=== PATIENT | male | born 1955 | race Caucasian/White ===

== ENCOUNTER → 2019-08-01 | Day surgery (SDC) | payer BC ==
[~2019-08-01] VITALS: Ht 175.2 cm; Wt 113.4 kg
[~2019-08-01] MED LIST: FISH OIL 1,2001 EACH PO; LANSOPRAZOLE30 MG PO; LOTREL 5-40 MG1 EACH PO; NORVASC10 MG PO; PRAVASTATIN SOD20 MG PO; PRAVASTATIN SOD40 MG PO
[2019-08-01 08:30] VITALS: BP 152/91
[2019-08-01 10:06] VITALS: BP 140/92
[2019-08-01 10:21] VITALS: BP 127/76
[2019-08-01 10:36] VITALS: BP 111/77
== END | disposition home or self-care (01) ==
LOC: SDC 07-26 10:15
DX: H25.11 Age-related nuclear cataract, right eye (principal); I10 Essential (primary) hypertension; Z98.890 Other specified postprocedural states

== ENCOUNTER → 2019-08-22 | Day surgery (SDC) | payer BC ==
[~2019-08-22] VITALS: Ht 175.2 cm; Wt 113.4 kg
[2019-08-22 10:40] VITALS: BP 134/82
[2019-08-22 12:09] VITALS: BP 143/93
[2019-08-22 12:25] VITALS: BP 126/75
[2019-08-22 12:35] VITALS: BP 132/75
== END | disposition home or self-care (01) ==
LOC: SDC 08-17 11:00
DX: H25.12 Age-related nuclear cataract, left eye (principal); I10 Essential (primary) hypertension; M19.90 Unspecified osteoarthritis, unspecified site; E66.01 Morbid (severe) obesity due to excess calories; Z68.36 Body mass index [BMI] 36.0-36.9, adult